=== PATIENT | female | born 1965 | race Caucasian/White ===

== ENCOUNTER 2017-02-19 19:29 | Emergency (ER) | payer MEDICAID ==
[2017-02-19 19:35] VITALS: BP 139/77; PULSE 106; RESP 18; TEMP 98.1; O2SAT 94
--- NOTE | 2017-02-19 20:15 | EDPHY ---
H & P Time Seen by Provider: 02/19/17 19:54 Smoking Status: Never smoked Constitutional: Initial Vital Signs Temperature (C) 36.7 C 02/19/17 19:33 Heart Rate 106 H 02/19/17 19:33 Respiratory Rate 18 02/19/17 19:33 Blood Pressure 139/77 H 02/19/17 19:33 O2 Sat (%) 94 02/19/17 19:33 O2 Delivery Mode Room Air Allergies/Adverse Reactions: No Known Allergies Allergy (Verified 02/19/17 19:35) Home Medications: Medication Instructions Recorded NK [No Known Home Meds] 02/19/17 Departure - Departure Referrals: NONE *PRIMARY CARE P,. [Primary Care Provider] - As per Instructions
--- NOTE | 2017-02-19 20:16 | EDPHY ---
ED Progress Note Narrative: I went to evaluate the patient but she was not the room. Nursing staff states she left without being seen.
== END 2017-02-19 20:00 | disposition left against medical advice (07) ==
DX: Z53.21 Procedure and treatment not carried out due to patient leaving prior to being seen by health care provider (principal)

== ENCOUNTER 2017-02-20 20:28 | Inpatient (IN) | payer MEDICAID ==
[2017-02-20] MEDS ORDERED: NS 1,000 ML IV ONE ×2 (20:37→20:43)
[2017-02-20] MEDS ORDERED: VANCOMYCIN HCL/NORMAL SALINE 250 ML IV ONE (20:37)
--- NOTE | 2017-02-20 20:41 | EDPHY ---
H & P HPI/ROS: HPI CHIEF COMPLAINT: Left breast infection HISTORY OF PRESENT ILLNESS: The patient very pleasant 51-year-old female significant past medical history for left breast cellulitis, breast CA, schizoaffective disorder versus bipolar, possible homelessness, she presents emergency room after she walked up to EMS in [facility] states that she called 911 as she is having ongoing breast pain left an infection. Tells me for the past 2-3 days she noticed increasing pain swelling and redness to her left breast. Denies chest pain or shortness of breath. Does admit to a cough. For subjective fever. Past Medical History: Breast CA, cellulitis, schizoaffective disorder versus bipolar Past Surgical History: Breast surgery Social History: States she has a place to live however appears homeless Family History: Noncontributory ROS REVIEW OF SYSTEMS: A comprehensive 10 point review of systems is otherwise negative aside from elements mentioned in the history of present illness. Exam Constitutional appears unkept, disheveled, triage nursing summary reviewed, vital signs reviewed, awake/alert. Eyes normal conjunctivae and sclera, EOMI, PERRLA. HENT normal inspection, atraumatic, moist mucus membranes, no epistaxis, neck supple/ no meningismus, no raccoon eyes. Respiratory clear to auscultation bilaterally, normal breath sounds, no respiratory distress, no wheezing. Cardiovascular chest wall exam: Karis RN marine engineer cpvec, left breast is erythematous warm, indurated, no fluctuance, no abscess visualize, breast appears to be cellulitic, underneath the breast fold is significant amount of yeast,, right breast yeast underfold. no apparent cellulitis, rate normal, regular rhythm, no murmur, no edema, distal pulses normal. Gastrointestinal soft, non-tender, no rebound, no guarding, normal bowel sounds, no distension, no pulsatile mass. Genitourinary no CVA tenderness. Musculoskeletal no midline vertebral tenderness, full range of motion, no calf swelling, no tenderness of extremities, no meningismus, good pulses, neurovascularly intact. Skin pink, warm, & dry, no rash, skin atraumatic. Neurologic awake, alert and oriented x 3, AAOx3, moves all 4 extremities equally, motor intact, sensory intact, CN II-XII intact, normal cerebellar, normal vision, normal speech. Psychiatric normal mood/affect. Heme/Lymph/Immune no lymphadenopathy. Differential Diagnosis: Includes but is not limited to in a particular order, mastitis, chest wall cellulitis, breath cellulitis, breast abscess, fungal infection, sepsis Medical Decision Making: Plan for this patient IV establishment, check blood work including CBC white count, blood cultures, lactic acid, full monitor, chest x-ray two view, I have ordered this patient IV Diflucan, IV vancomycin for left breast cellulitis and yeast infection Re-evaluation: 2120: Patient noted be afebrile here. Obvious left breast cellulitis. Underneath breast fold has a fungal infection. IV vancomycin given to the patient, IV Diflucan. Blood cultures pulled lactic less than 2. Normotensive. Admitted to Dr. Tello [facility] surge bed for left breast cellulitis and fungal infection. He accepts. Source: Patient, EMS - Personal History Tetanus Vaccine Date: 2006 - Medical/Surgical History Hx Asthma: No Hx Chronic Respiratory Disease: No Hx Diabetes: No Hx Cardiac Disease: No Hx Renal Disease: No Hx Cirrhosis: No Hx Alcoholism: No Hx HIV/AIDS: No Hx Splenectomy or Spleen Trauma: No Other PMH: Breast CA. Mastectomy L; w/reconstr. b/l hip replacements. bipolar. schizophrenia - Social History Smoking Status: Never smoked Constitutional: Initial Vital Signs Temperature (C) 38.5 C H 02/20/17 20:37 Heart Rate 107 H 02/20/17 20:37 Respiratory Rate 20 02/20/17 20:37 Blood Pressure 148/106 H 02/20/17 20:37 O2 Sat (%) 96 02/20/17 20:37 O2 Delivery Mode Room Air Allergies/Adverse Reactions: No Known Allergies Allergy (Verified 02/20/17 20:39) Home Medications: Medication Instructions Recorded NK [No Known Home Meds] 02/19/17 Medical Decision Making - Data Points Laboratory Results: Laboratory Results 02/20/17 20:40 02/20/17 20:40 02/20/17 02/20/17 02/20/17 20:40 20:40 20:40 WBC 12.88 10^3/uL H 10^3/uL (3.80-9.50) RBC 3.94 10^6/uL L 10^6/uL (4.18-5.33) Hgb 11.4 g/dL L g/dL (12.6-16.3) Hct 34.4 % L % (38.0-47.0) MCV 87.3 fL fL (81.5-99.8) MCH 28.9 pg pg (27.9-34.1) MCHC 33.1 g/dL g/dL (32.4-36.7) RDW 14.6 % % (11.5-15.2) Plt Count 344 10^3/uL 10^3/uL (150-400) MPV 9.9 fL fL (8.7-11.7) Neut % (Auto) 80.7 % H % (39.3-74.2) Lymph % (Auto) 8.9 % L % (15.0-45.0) [place] % (Auto) 8.9 % % (4.5-13.0) Eos % (Auto) 0.9 % % (0.6-7.6) Baso % (Auto) 0.2 % L % (0.3-1.7) Nucleat RBC Rel Count 0.0 % % (0.0-0.2) Absolute Neuts (auto) 10.39 10^3/uL H 10^3/uL (1.70-6.50) Absolute Lymphs (auto) 1.15 10^3/uL 10^3/uL (1.00-3.00) Absolute Monos (auto) 1.15 10^3/uL H 10^3/uL (0.30-0.80) Absolute Eos (auto) 0.11 10^3/uL 10^3/uL (0.03-0.40) Absolute Basos (auto) 0.03 10^3/uL 10^3/uL (0.02-0.10) Absolute Nucleated RBC 0.00 10^3/uL 10^3/uL (0-0.01) Immature Gran % 0.4 % % (0.0-1.1) Immature Gran # 0.05 10^3/uL 10^3/uL (0.00-0.10) PT 14.4 SEC SEC (12.0-15.0) INR 1.13 (0.83-1.16) APTT 29.7 SEC SEC (23.0-38.0) VBG Lactic Acid Sodium 134 mEq/L mEq/L (134-144) Potassium 3.8 mEq/L mEq/L (3.5-5.2) Chloride 102 mEq/L mEq/L (97-110) Carbon Dioxide 23 mEq/l mEq/l (22-31) Anion Gap 9 mEq/L mEq/L (8-16) BUN 14 mg/dL mg/dL (7-23) Creatinine 0.7 mg/dL mg/dL (0.6-1.0) Estimated GFR > 60 Glucose 98 mg/dL mg/dL (70-100) Calcium 8.9 mg/dL mg/dL (8.5-10.4) Total Bilirubin 0.7 mg/dL mg/dL (0.1-1.4) Conjugated Bilirubin 0.4 mg/dL mg/dL (0.0-0.5) Unconjugated Bilirubin 0.3 mg/dL mg/dL (0.0-1.1) AST 24 IU/L IU/L (14-46) ALT 27 IU/L IU/L (9-52) Alkaline Phosphatase 71 IU/L IU/L (38-126) Total Protein 6.8 g/dL g/dL (6.3-8.2) Albumin 3.8 g/dL g/dL (3.5-5.0) Lipase 75.0 IU/L IU/L (23-300) 02/20/17 20:40 WBC RBC Hgb Hct MCV MCH MCHC RDW Plt Count MPV Neut % (Auto) Lymph % (Auto) [place] % (Auto) Eos % (Auto) Baso % (Auto) Nucleat RBC Rel Count Absolute Neuts (auto) Absolute Lymphs (auto) Absolute Monos (auto) Absolute Eos (auto) Absolute Basos (auto) Absolute Nucleated RBC Immature Gran % Immature Gran # PT INR APTT VBG Lactic Acid 1.1 mmol/L mmol/L (0.7-2.1) Sodium Potassium Chloride Carbon Dioxide Anion Gap BUN Creatinine Estimated GFR Glucose Calcium Total Bilirubin Conjugated Bilirubin Unconjugated Bilirubin AST ALT Alkaline Phosphatase Total Protein Albumin Lipase Medications Given: Discontinued Medications Acetaminophen (Tylenol) 1,000 mg PO EDNOW ONE Stop: 02/20/17 20:44 Last Admin: 02/20/17 21:00 Dose: 1,000 mg Sodium Chloride (Ns) 1,000 mls @ 0 mls/hr IV ONCE ONE PRN Reason: Wide Open Stop: 02/20/17 20:38 Last Admin: 02/20/17 20:54 Dose: 1,000 mls Sodium Chloride (Ns) 1,000 mls @ 0 mls/hr IV ONCE ONE PRN Reason: Wide Open Stop: 02/20/17 20:44 Last Admin: 02/20/17 21:01 Dose: 1,000 mls Departure - Departure Disposition: [facility] Inpatient Acute Clinical Impression: Cellulitis of left breast Condition: Fair Referrals: NONE *PRIMARY CARE P,. [Unknown] - As per Instructions
[2017-02-20] MEDS ORDERED: ACETAMINOPHEN 500 MG TAB PO ONE (20:43)
[2017-02-20 20:53] LABS: % IMMATURE GRANULYOCYTES 0.4 % (0.0-1.1); ABSOLUTE IMMATURE GRANULOCYTES 0.05 10^3/uL (0.00-0.10); ADD DIFF? NO; ADD MORPH? NO; ADD SCAN? NO; ATYPICAL LYMPHOCYTE FLAG 0 (0-99); FRAGMENT RBC FLAG 0 (0-99); HEMATOCRIT 34.4 % (38.0-47.0); HEMOGLOBIN 11.4 g/dL (12.6-16.3); LEFT SHIFT FLG 0 (0-99); LIPEMIA HEMOLYSIS FLAG 80 (0-99); MEAN CELL HEMOGLOBIN 28.9 pg (27.9-34.1); MEAN CELL HEMOGLOBIN CONCENTR. 33.1 g/dL (32.4-36.7); MEAN CELL VOLUME 87.3 fL (81.5-99.8); MEAN PLATELET VOLUME 9.9 fL (8.7-11.7); PLATELET CLUMPS FLAG 0 (0-99); PLATELET COUNT 344 10^3/uL (150-400); RED BLOOD CELL COUNT 3.94 10^6/uL (4.18-5.33); RED CELL DISTRIBUTION WIDTH 14.6 % (11.5-15.2)
[2017-02-20] MEDS ORDERED: FLUCONAZOLE/NaCl 100 ML IV SCH (21:00)
[2017-02-20 21:03] LABS: INR 1.13 (0.83-1.16); PROTIME(PATIENT) 14.4 SEC (12.0-15.0)
[2017-02-20 21:04] LABS: APTT 29.7 SEC (23.0-38.0)
[2017-02-20 21:05] LABS: ALANINE AMINOTRANSFERASE 27 IU/L (9-52); ALBUMIN 3.8 g/dL (3.5-5.0); ALKALINE PHOSPHATASE 71 IU/L (38-126); ANION GAP 9 mEq/L (8-16); ASPARTATE AMINOTRANSFERASE 24 IU/L (14-46); BILIRUBIN,TOTAL 0.7 mg/dL (0.1-1.4); BILIRUBIN-CONJUGATED 0.4 mg/dL (0.0-0.5); BILIRUBIN-UNCONJUGATED 0.3 mg/dL (0.0-1.1); CALCIUM 8.9 mg/dL (8.5-10.4); CARBON DIOXIDE 23 mEq/l (22-31); CHLORIDE 102 mEq/L (97-110); CREATININE 0.7 mg/dL (0.6-1.0); GLOMERULAR FILTRATION RATE > 60; GLUCOSE 98 mg/dL (70-100); POTASSIUM 3.8 mEq/L (3.5-5.2); SODIUM 134 mEq/L (134-144); TOTAL PROTEIN 6.8 g/dL (6.3-8.2)
[2017-02-20] MEDS ORDERED: FLUCONAZOLE/NaCl 100 ML IV ONE (22:00)
[2017-02-21] MEDS ORDERED: ONDANSETRON DISINTEGRATING 4 MG TAB PO PRN (00:42)
[2017-02-21] MEDS ORDERED: IBUPROFEN 600 MG TAB PO PRN (00:42)
[2017-02-21] MEDS ORDERED: ONDANSETRON 4 MG/2 ML VIAL IVP PRN (00:42)
[2017-02-21] MEDS: CLOTRIMAZOLE 1% 15 GM CRTUBE TP SCH ×3 (04:36→21:21)
[2017-02-21 05:27] LABS: % IMMATURE GRANULYOCYTES 0.3 % (0.0-1.1); ABSOLUTE IMMATURE GRANULOCYTES 0.03 10^3/uL (0.00-0.10); ADD DIFF? NO; ADD MORPH? NO; ADD SCAN? NO; ATYPICAL LYMPHOCYTE FLAG 0 (0-99); FRAGMENT RBC FLAG 0 (0-99); HEMOGLOBIN 10.1 g/dL (12.6-16.3); LEFT SHIFT FLG 10 (0-99); LIPEMIA HEMOLYSIS FLAG 80 (0-99); MEAN CELL HEMOGLOBIN 29.5 pg (27.9-34.1); MEAN CELL HEMOGLOBIN CONCENTR. 32.6 g/dL (32.4-36.7); MEAN CELL VOLUME 90.6 fL (81.5-99.8); MEAN PLATELET VOLUME 10.2 fL (8.7-11.7); PLATELET CLUMPS FLAG 10 (0-99); PLATELET COUNT 284 10^3/uL (150-400); RED BLOOD CELL COUNT 3.42 10^6/uL (4.18-5.33); RED CELL DISTRIBUTION WIDTH 14.7 % (11.5-15.2)
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
[2017-02-21] MEDS: ACETAMINOPHEN 325 MG TAB PO PRN ×3 (08:39→21:20)
[2017-02-21] MEDS ORDERED: GADOBUTROL 10 ML VIAL IVP ONE (08:44)
--- NOTE | 2017-02-21 10:03 | PCMIDPN ---
Assessment/Plan: Assessment: Bilateral severe dermatitis underneath the breasts. This is most consistent with fungal dermatitis. The turgor of the tissue underneath the erythema is normal and at this point I do not believe that she has significant bacterial soft tissue disease. However she is at risk for this given her history and the severity of the dermatitis. We will continue the cefazolin as ordered for approximately 7 days to cover for potential secondary bacterial infection. However I think the primary issue here is fungal dermatitis and therefore we will continue the fluconazole at 100 mg IV daily. Patient can switch to p. o. once improvement is noted. Plan: 1. Continue IV cefazolin. 2. Continue IV fluconazole 200 mg daily. 3. Follow clinical course of improvement. Plan to switch to p.o. once clinically improved. Subjective: Patient is sitting up in her chair. She complains of redness and burning underneath her breasts bilaterally. States it started on the left side that has spread to the right side. Fevers yesterday. Objective: Cefazolin # 1 Fluconazole # 2 Vital Signs Temp Pulse Resp BP Pulse Ox 36.5 C 81 14 120/85 H 93 02/21/17 07:44 02/21/17 07:44 02/21/17 07:44 02/21/17 07:44 02/21/17 07:44 Laboratory Results 02/21/17 04:35 02/20/17 02/21/17 02/22/17 05:59 05:59 05:59 Intake Total 2650 Balance 2650 - Physical Exam General Appearance: WD/WN, alert, no apparent distress, non-toxic Respiratory: lungs clear, normal breath sounds, No respiratory distress Cardiac/Chest: regular rate, rhythm, No tachycardia Skin: normal color, warm/dry, rash (Confluent erythema underlying the breasts bilaterally. No extension further than this.) Neuro/Psych: alert, normal mood/affect, oriented x 3 ICD10 Worksheet Patient Problems: Problems Problem Status Onset Cellulitis of left breast Acute Cellulitis Acute Invasive ductal carcinoma of right breast Acute
--- NOTE | 2017-02-21 10:39 | WOCRNPDOC ---
WOCRN Advanced Assessment Note - Skin Integrity Problem, Advanced Assess Bilateral Breast Unknown Dressing Type: Open to Air Exudate Amount: None Skin Integrity Problem Comment: Left breast with x3 open scabbed wounds approximately 1.5x1.5x0. The breast is firm and has erythema extending superiorly toward areola. Right breast is softer with approximately x10 small scabbed areas (smaller than 0.5x0.5) of excoriation. Underneath bilateral breasts patient has moderate to severe moisture associated dermatitis with fungal involvement. Interdry sheets supplied to RN. Please reconsult prn. Wound care will not follow.
[2017-02-21] MEDS: ENOXAPARIN 40 MG/0.4 ML SYR SC SCH (13:41)
--- NOTE | 2017-02-21 14:39 | HOSPPROG ---
Hospitalist Progress Note Assessment/Plan: # Acute Breast cellulitis - recurrent - pt with history of complicated skin infections in the past including Strep A infections returning with recurrent breast erythema and pain - CXR (personally reviewed and interpreted) no subcutaneous air or infiltrates oxygen saturations 95% on RA - WBC to 12-> 10 today - consult ID regarding treatment of candidal skin infection - cont IV cefazolin - surgery asked for MRI breast # H/o invasive ductal CA - Dr. hair wanting MRI on previous admission - ordered for today # schizoaffective disorder - concerning contributor to her health status - behavioral health has been consulted - cont supportive care # proph - lovenox # diet- regular # dispo - > 2MN as requiring IV abx I have discussed the case with CM - in agreement consultation will help inform dispo planning Subjective: breast pain Objective: Vital Signs Temp Pulse Resp BP Pulse Ox 36.6 C 69 14 139/93 H 94 02/21/17 11:34 02/21/17 11:34 02/21/17 11:34 02/21/17 11:34 02/21/17 11:34 Laboratory Results 02/21/17 04:35 02/20/17 02/21/17 02/22/17 05:59 05:59 05:59 Intake Total 2650 Balance 2650 PT 14.4 SEC (12.0-15.0) 02/20/17 20:40 INR 1.13 (0.83-1.16) 02/20/17 20:40 - Physical Exam Constitutional: no apparent distress Eyes: anicteric sclera Ears, Nose, Mouth, Throat: moist mucous membranes Cardiovascular: regular rate and rhythym Respiratory: no respiratory distress Gastrointestinal: normoactive bowel sounds Genitourinary: no bladder fullness Skin: other (marked erythema under breasts bilaterally with visible cellulitis extending superiorly to areola) Musculoskeletal: No asymmetric calves Neurologic: AAOx3 Psychiatric: poor judgement Lymph, Heme, Immunologic: no cervical LAD ICD10 Worksheet Patient Problems: Problems Problem Status Onset Cellulitis of left breast Acute Cellulitis Acute Invasive ductal carcinoma of right breast Acute
[2017-02-22] MEDS: ACETAMINOPHEN 325 MG TAB PO PRN ×2 (04:32→21:41)
[2017-02-22 05:05] LABS: HEMOGLOBIN 10.3 g/dL (12.6-16.3); MEAN CELL HEMOGLOBIN 29.3 pg (27.9-34.1); MEAN CELL HEMOGLOBIN CONCENTR. 32.2 g/dL (32.4-36.7); MEAN CELL VOLUME 90.9 fL (81.5-99.8); RED BLOOD CELL COUNT 3.52 10^6/uL (4.18-5.33); RED CELL DISTRIBUTION WIDTH 14.6 % (11.5-15.2)
[2017-02-22] MEDS ORDERED: FLUCONAZOLE/NaCl 100 MG in BAG 0 ML IV SCH (09:00)
[2017-02-22] MEDS: ENOXAPARIN 40 MG/0.4 ML SYR SC SCH (09:13)
[2017-02-22] MEDS: CLOTRIMAZOLE 1% 15 GM CRTUBE TP SCH ×2 (09:27→21:12)
--- NOTE | 2017-02-22 14:55 | HOSPPROG ---
Hospitalist Progress Note Assessment/Plan: # Acute Breast cellulitis - recurrent - pt with history of complicated skin infections in the past including Strep A infections returning with recurrent breast erythema and pain - CXR (personally reviewed and interpreted) no subcutaneous air or infiltrates oxygen saturations 95% on RA - WBC to 12-> 6 today - erythema improved today on treatment pain controlled on tylenol - cont fluconazole - cont IV cefazolin # H/o invasive ductal CA - Dr. hair wanting MRI on previous admission - - MRI ordered for today # schizoaffective disorder - concerning contributor to her health status - behavioral health has been consulted - cont supportive care # HTN - pt with consistent elevation in her BP - will start low dose HCTZ today # proph - lovenox # diet- regular # dispo - > 2MN as requiring IV abx I have discussed the case with RN - pt practiced laying on her stomach she will attempt MRI today Subjective: pain improved Objective: Vital Signs Temp Pulse Resp BP Pulse Ox 36.7 C 76 16 158/97 H 96 02/22/17 11:49 02/22/17 11:49 02/22/17 11:49 02/22/17 11:49 02/22/17 11:49 Laboratory Results 02/22/17 04:24 02/21/17 02/22/17 02/23/17 05:59 05:59 05:59 Intake Total 2650 900 Balance 2650 900 PT 14.4 SEC (12.0-15.0) 02/20/17 20:40 INR 1.13 (0.83-1.16) 02/20/17 20:40 - Physical Exam Constitutional: appears nourished Eyes: anicteric sclera Ears, Nose, Mouth, Throat: moist mucous membranes Cardiovascular: regular rate and rhythym Respiratory: no respiratory distress, no rales or rhonchi Gastrointestinal: normoactive bowel sounds, soft, non-tender abdomen Genitourinary: no bladder fullness Skin: warm, normal color, erythema (improved under bilateral breasts) Musculoskeletal: No asymmetric calves Neurologic: AAOx3, sensation intact bilaterally Psychiatric: interacting appropriately Lymph, Heme, Immunologic: no cervical LAD ICD10 Worksheet Patient Problems: Problems Problem Status Onset Cellulitis of left breast Acute Cellulitis Acute Invasive ductal carcinoma of right breast Acute
--- NOTE | 2017-02-22 15:54 | PCMIDPN ---
Assessment/Plan: # L Breast cellulitis, past cultures with GAS, faint erythema 9 and 12 o'clock, this is my first exam, difficult to assess improvement. Prior episodes very slow to improve --on cefazolin IV # Tinea corporis under L breast > R breast --transition to PO fluconazole 200mg daily, higher dose because of degree of disease meds cefazolin 1gm IV q8h, #2 fluconazole, #2 micro 02/20 blood cx (2) NGTD Subjective: c/o smell from under breast rash under breast is pruritic Objective: Vital Signs Temp Pulse Resp BP Pulse Ox 36.7 C 76 16 158/97 H 96 02/22/17 11:49 02/22/17 11:49 02/22/17 11:49 02/22/17 11:49 02/22/17 11:49 Laboratory Results 02/22/17 04:24 02/21/17 02/22/17 02/23/17 05:59 05:59 05:59 Intake Total 2650 900 Balance 2650 900 - Physical Exam General Appearance: alert, no apparent distress Respiratory: No accessory muscle use Pelvic Exam: No riley Skin: erythema (faint, R breast from 9 to 12 oclock), other (multiple scattered scabbed papules R lateral breast, L lateral breast) Neuro/Psych: alert, other (flat affect, cooperative) ICD10 Worksheet Patient Problems: Problems Problem Status Onset Cellulitis of left breast Acute Cellulitis Acute Invasive ductal carcinoma of right breast Acute
[2017-02-22] MEDS: HYDROCHLOROTHIAZIDE 25 MG TAB PO SCH (16:48)
[2017-02-23] MEDS: ACETAMINOPHEN 325 MG TAB PO PRN ×2 (01:25→19:26)
[2017-02-23 05:23] LABS: ANION GAP 8 mEq/L (8-16); CALCIUM 9.1 mg/dL (8.5-10.4); CARBON DIOXIDE 25 mEq/l (22-31); CHLORIDE 105 mEq/L (97-110); CREATININE 0.6 mg/dL (0.6-1.0); GLOMERULAR FILTRATION RATE > 60; GLUCOSE 99 mg/dL (70-100); POTASSIUM 4.5 mEq/L (3.5-5.2); SODIUM 138 mEq/L (134-144)
[2017-02-23] MEDS: HYDROCHLOROTHIAZIDE 25 MG TAB PO SCH (10:28)
[2017-02-23] MEDS: FLUCONAZOLE 100 MG TAB PO SCH (10:28)
[2017-02-23] MEDS: ENOXAPARIN 40 MG/0.4 ML SYR SC SCH (10:29)
[2017-02-23] MEDS: CLOTRIMAZOLE 1% 15 GM CRTUBE TP SCH ×2 (10:29→19:27)
--- NOTE | 2017-02-23 11:17 | PCMIDPN ---
Assessment/Plan: 1. Left breast cellulitis, mild: I demarcated the area of pinkish, blanching erythema that was previously noted. Patient feels that it is better overall compared with 2 days ago. Continue Ancef as is. 2. Intertriginous candidiasis: On higher dose fluconazole 200 mg p.o. daily as well as wound care. No new recommendations. Follow liver function tests on fluconazole. Subjective: In good spirits. Flat affect. Feels that her cellulitis on the left breast is getting better. Objective: Ancef 1 g IV q.8 hours day 3. Fluconazole 200 mg p.o. daily day 3 Afebrile Vital Signs Temp Pulse Resp BP Pulse Ox 36.4 C 61 15 128/77 H 95 02/23/17 08:00 02/23/17 08:00 02/23/17 08:00 02/23/17 08:00 02/23/17 08:00 Laboratory Results 02/22/17 04:24 02/23/17 04:34 02/22/17 02/23/17 02/24/17 05:59 05:59 05:59 Intake Total 900 550 Balance 900 550 No new microbiology - Physical Exam General Appearance: alert, no apparent distress Cardiac/Chest: other (Significant beet red erythema with maceration under both breasts. Borders demarcated consistent with Sarah intertrigo. The medial aspect of the left breast is notable for faint blanching erythema that the patient's says is better. She also has multiple excoriations scattered on both breasts and superficial ulcerations that are self-inflicted secondary to pruritus.) ICD10 Worksheet Patient Problems: Problems Problem Status Onset Cellulitis of left breast Acute Cellulitis Acute Invasive ductal carcinoma of right breast Acute
--- NOTE | 2017-02-23 12:17 | HOSPPROG ---
Hospitalist Progress Note Assessment/Plan: # Acute Breast cellulitis - recurrent - pt with history of complicated skin infections in the past including Strep A infections returning with recurrent breast erythema and pain - CXR - no subcutaneous air or infiltrates oxygen saturations 96% on RA - WBC to 12-> 6- erythema improved today on treatment pain controlled on tylenol - cont fluconazole - cont IV cefazolin # H/o invasive ductal CA - Dr. Day wanting MRI on previous admission - - MRI ordered for today # schizoaffective disorder - concerning contributor to her health status - behavioral health has been consulted - cont supportive care # HTN - pt with consistent elevation in her BP - started low dose HCTZ - BP perfectly controlled today - cont 12.5 HCTZ # proph - lovenox # diet- regular # dispo - > 2MN as requiring IV abx I have discussed the case with ID - expecting IV abx for a few more days- will monitor daily for improvement Subjective: reports subjective improvement in breast cellulitis and discomfort Objective: Vital Signs Temp Pulse Resp BP Pulse Ox 36.4 C 61 15 128/77 H 95 02/23/17 08:00 02/23/17 08:00 02/23/17 08:00 02/23/17 08:00 02/23/17 08:00 Laboratory Results 02/22/17 04:24 02/23/17 04:34 02/22/17 02/23/17 02/24/17 05:59 05:59 05:59 Intake Total 900 550 Balance 900 550 PT 14.4 SEC (12.0-15.0) 02/20/17 20:40 INR 1.13 (0.83-1.16) 02/20/17 20:40 - Physical Exam Constitutional: appears nourished Eyes: anicteric sclera Ears, Nose, Mouth, Throat: moist mucous membranes Cardiovascular: regular rate and rhythym, no murmur, rub, or gallop Respiratory: no respiratory distress Gastrointestinal: normoactive bowel sounds, soft, non-tender abdomen Genitourinary: no bladder fullness Skin: warm, erythema (under bilateral breasts improved) Musculoskeletal: No asymmetric calves Neurologic: AAOx3 Psychiatric: flat affect Lymph, Heme, Immunologic: no cervical LAD ICD10 Worksheet Patient Problems: Problems Problem Status Onset Cellulitis of left breast Acute Cellulitis Acute Invasive ductal carcinoma of right breast Acute
[2017-02-23] MEDS ORDERED: GADOBUTROL 10 ML VIAL IVP ONE (14:03)
[2017-02-24 05:56] LABS: ALANINE AMINOTRANSFERASE 92 IU/L (9-52); ALBUMIN 3.3 g/dL (3.5-5.0); ALKALINE PHOSPHATASE 97 IU/L (38-126); ANION GAP 11 mEq/L (8-16); ASPARTATE AMINOTRANSFERASE 50 IU/L (14-46); BILIRUBIN,TOTAL 0.3 mg/dL (0.1-1.4); CALCIUM 9.5 mg/dL (8.5-10.4); CARBON DIOXIDE 25 mEq/l (22-31); CHLORIDE 103 mEq/L (97-110); CREATININE 0.7 mg/dL (0.6-1.0); GLOMERULAR FILTRATION RATE > 60; GLUCOSE 97 mg/dL (70-100); POTASSIUM 4.2 mEq/L (3.5-5.2); SODIUM 139 mEq/L (134-144)
[2017-02-24] MEDS: ACETAMINOPHEN 325 MG TAB PO PRN ×2 (06:06→22:34)
[2017-02-24] MEDS: CLOTRIMAZOLE 1% 15 GM CRTUBE TP SCH ×2 (09:29→22:34)
[2017-02-24] MEDS: HYDROCHLOROTHIAZIDE 25 MG TAB PO SCH (09:29)
[2017-02-24] MEDS: FLUCONAZOLE 100 MG TAB PO SCH (09:30)
[2017-02-24] MEDS: ENOXAPARIN 40 MG/0.4 ML SYR SC SCH (09:31)
--- NOTE | 2017-02-24 12:27 | HOSPPROG ---
Hospitalist Progress Note Assessment/Plan: # Acute Breast cellulitis - recurrent - pt with history of complicated skin infections in the past including Strep A infections returning with recurrent breast erythema and pain - CXR - no subcutaneous air or infiltrates oxygen saturations 96% on RA - WBC to 12-> 6- erythema stable today AST/ALT 50/93 - discuss with ID mild bump in LFT and discuss abx/antifungals - cont fluconazole - cont IV cefazolin # H/o invasive ductal CA - MRI breast (personally reviewed and interpreted) abnormal skin findings concerning for inflammatory CA and concerning LAD - discussed with Dr. Day - she will consult for either skin or LAD bx # schizoaffective disorder - concerning contributor to her health status - behavioral health has been consulted - cont supportive care # HTN - pt with consistent elevation in her BP - started low dose HCTZ - BP perfectly controlled today - cont 12.5 HCTZ # proph - lovenox # diet- regular # dispo - > 2MN as requiring IV abx I have discussed the case with Dr. Day she will consult for bx - ID will review labs and make recs regarding abx/antifungals Subjective: pain adequately controlled Objective: Vital Signs Temp Pulse Resp BP Pulse Ox 36.6 C 72 14 128/90 H 95 02/24/17 07:30 02/24/17 07:30 02/24/17 07:30 02/24/17 09:29 02/24/17 07:30 Laboratory Results 02/22/17 04:24 02/24/17 04:28 02/23/17 02/24/17 02/25/17 05:59 05:59 05:59 Intake Total 550 Balance 550 PT 14.4 SEC (12.0-15.0) 02/20/17 20:40 INR 1.13 (0.83-1.16) 02/20/17 20:40 - Physical Exam Constitutional: appears nourished Eyes: anicteric sclera Ears, Nose, Mouth, Throat: moist mucous membranes Cardiovascular: regular rate and rhythym, no murmur, rub, or gallop Respiratory: no respiratory distress Gastrointestinal: normoactive bowel sounds, soft, non-tender abdomen Genitourinary: no bladder fullness Skin: warm, normal color Musculoskeletal: No asymmetric calves Neurologic: AAOx3 Psychiatric: flat affect Lymph, Heme, Immunologic: no cervical LAD ICD10 Worksheet Patient Problems: Problems Problem Status Onset Cellulitis of left breast Acute Cellulitis Acute Invasive ductal carcinoma of right breast Acute
--- NOTE | 2017-02-24 14:56 | PCMIDPN ---
Assessment/Plan: Assessment: Bilateral severe dermatitis underneath the breasts. This is most consistent with fungal dermatitis. The turgor of the tissue underneath the erythema is normal and at this point I do not believe that she has significant bacterial soft tissue disease. However she is at risk for this given her history and the severity of the dermatitis. We will continue the cefazolin as ordered for approximately 7 days to cover for potential secondary bacterial infection. The primary issue here is fungal dermatitis and therefore we will continue the fluconazole at 200mg PO daily. She has made significant improvement in his close to being able to switch to oral medication. Plan: 1. Continue IV cefazolin. 2. Continue po fluconazole 200 mg daily. 3. Follow clinical course of improvement. Plan to switch the cefazolin to p.o. once clinically improved. Subjective: Patient notes much improvement in the tenderness and discomfort underneath her breasts. She notes that the redness is significantly decreased as well. No fevers or chills. Objective: Cefazolin #4 Fluconazole #4 Vital Signs Temp Pulse Resp BP Pulse Ox 36.4 C 72 16 129/97 H 95 02/24/17 14:48 02/24/17 14:48 02/24/17 14:48 02/24/17 14:48 02/24/17 14:48 Laboratory Results 02/22/17 04:24 02/24/17 04:28 02/23/17 02/24/17 02/25/17 05:59 05:59 05:59 Intake Total 550 Balance 550 - Physical Exam General Appearance: WD/WN, alert, no apparent distress, non-toxic Respiratory: lungs clear, normal breath sounds, No respiratory distress Cardiac/Chest: regular rate, rhythm, No tachycardia Skin: normal color, warm/dry, rash (Can fluid erythema underneath her breasts left greater than right has turned into a dusky resolving hue.), erythema ( Improved) Neuro/Psych: alert, normal mood/affect, oriented x 3 ICD10 Worksheet Patient Problems: Problems Problem Status Onset Cellulitis of left breast Acute Cellulitis Acute Invasive ductal carcinoma of right breast Acute
[2017-02-25] MEDS: CLOTRIMAZOLE 1% 15 GM CRTUBE TP SCH ×3 (08:54→23:11)
[2017-02-25] MEDS: HYDROCHLOROTHIAZIDE 25 MG TAB PO SCH (08:55)
[2017-02-25] MEDS: FLUCONAZOLE 100 MG TAB PO SCH (08:55)
[2017-02-25] MEDS: ENOXAPARIN 40 MG/0.4 ML SYR SC SCH (08:55)
--- NOTE | 2017-02-25 13:39 | HOSPPROG ---
Hospitalist Progress Note Assessment/Plan: # Acute Breast cellulitis - recurrent - pt with history of complicated skin infections in the past including Strep A infections returning with recurrent breast erythema and pain - CXR - no subcutaneous air or infiltrates oxygen saturations 96% on RA - WBC to 12-> 6- erythema stable creatinine 0.7 - discuss with ID mild bump in LFT and discuss abx/antifungals - cont fluconazole - cont IV cefazolin # H/o invasive ductal CA - MRI breast (personally reviewed and interpreted) abnormal skin findings concerning for inflammatory CA and concerning LAD - discussed with Dr. Day - they will consult 02/26/17 for plan regarding either skin or LAD bx # schizoaffective disorder - concerning contributor to her health status - behavioral health has been consulted - cont supportive care # HTN - pt with consistent elevation in her BP - started low dose HCTZ - BP perfectly controlled SBP 120's - cont 12.5 HCTZ # proph - lovenox # diet- regular # dispo - > 2MN as requiring IV abx I have discussed the case with ID - we will continue current Abx and Fluconazole - pt responding well Subjective: reports pain and erythema improved - most painful on lateral aspect of right breast Objective: Vital Signs Temp Pulse Resp BP Pulse Ox 36.6 C 76 16 126/91 H 94 02/25/17 08:00 02/25/17 08:00 02/25/17 08:00 02/25/17 08:55 02/25/17 08:00 Laboratory Results 02/22/17 04:24 02/24/17 04:28 PT 14.4 SEC (12.0-15.0) 02/20/17 20:40 INR 1.13 (0.83-1.16) 02/20/17 20:40 - Physical Exam Constitutional: appears nourished Eyes: anicteric sclera Ears, Nose, Mouth, Throat: moist mucous membranes Cardiovascular: regular rate and rhythym Respiratory: no respiratory distress, no rales or rhonchi Gastrointestinal: normoactive bowel sounds, soft, non-tender abdomen Genitourinary: no bladder fullness Skin: warm, normal color, other (erythema under bilateral breasts markedly improved - ) Musculoskeletal: No asymmetric calves Neurologic: AAOx3 Psychiatric: flat affect Lymph, Heme, Immunologic: no cervical LAD ICD10 Worksheet Patient Problems: Problems Problem Status Onset Cellulitis of left breast Acute Cellulitis Acute Invasive ductal carcinoma of right breast Acute
--- NOTE | 2017-02-25 16:09 | PCMIDPN ---
Assessment/Plan: Assessment: Bilateral severe dermatitis underneath the breasts. This is most consistent with fungal dermatitis. The turgor of the tissue underneath the erythema is normal and at this point I do not believe that she has significant bacterial soft tissue disease. However she is at risk for this given her history and the severity of the dermatitis. We will continue the cefazolin as ordered for approximately 7 days to cover for potential secondary bacterial infection. The primary issue here is fungal dermatitis and therefore we will continue the fluconazole at 200mg PO daily. She has made significant improvement in his close to being able to switch to oral medication. Plan: 1. Continue IV cefazolin. 2. Continue po fluconazole 200 mg daily. 3. Follow clinical course of improvement. Plan to switch the cefazolin to p.o. once clinically improved. Subjective: Patient is resting in her hospital room. She notes that the redness under her breasts is significantly better. She is still concerned about the lesions on the upper lateral aspect of her left breast. These were stated to be surgically biopsy tomorrow. Objective: Cefazolin# 5 Fluconazole # fossa Vital Signs Temp Pulse Resp BP Pulse Ox 36.8 C 87 17 120/81 H 94 02/25/17 15:47 02/25/17 15:47 02/25/17 15:47 02/25/17 15:47 02/25/17 15:47 Laboratory Results 02/22/17 04:24 02/24/17 04:28 - Physical Exam General Appearance: WD/WN, alert, no apparent distress, non-toxic Respiratory: lungs clear, normal breath sounds, No respiratory distress Cardiac/Chest: regular rate, rhythm, No tachycardia Skin: normal color, warm/dry, rash (Improving erythema under the breasts bilaterally. Right side near normal. Left side 60% improved.) Neuro/Psych: alert, normal mood/affect, oriented x 3 ICD10 Worksheet Patient Problems: Problems Problem Status Onset Cellulitis of left breast Acute Cellulitis Acute Invasive ductal carcinoma of right breast Acute
[2017-02-25] MEDS: ACETAMINOPHEN 325 MG TAB PO PRN (22:45)
[2017-02-26 08:06] VITALS: BP 122/77; PULSE 71; RESP 12; TEMP 97.5; O2SAT 94
[2017-02-26] MEDS: FLUCONAZOLE 100 MG TAB PO SCH (10:44)
[2017-02-26] MEDS: CLOTRIMAZOLE 1% 15 GM CRTUBE TP SCH (10:44)
[2017-02-26] MEDS: HYDROCHLOROTHIAZIDE 25 MG TAB PO SCH (10:44)
[2017-02-26] MEDS: ENOXAPARIN 40 MG/0.4 ML SYR SC SCH (10:45)
[2017-02-26] MEDS: ACETAMINOPHEN 325 MG TAB PO PRN (10:50)
--- NOTE | 2017-02-26 13:36 | GDS ---
[f rep st] DISCHARGE SUMMARY DISCHARGE DIAGNOSES: 1. Acute breast cellulitis, recurrent, thought to be due to intertrigo. 2. History of invasive ductal carcinoma. 3. Schizoaffective disorder. 4. Hypertension. CONSULTANTS: 1. [facility]. 2. [facility]. HOSPITAL COURSE AND STAY: By problem: 1. Recurrent breast cellulitis bilaterally thought to be due to dermatitis: Patient was admitted t o the hospital where she has been treated with IV cefazolin as well as fluconazole 200 mg daily. Priyank avila's erythema has continued to improve. On day of discharge, she is afebrile and tells me that s he feels well and would like to be discharged. I discussed the case with Chana Lui from General Surgery who will see the patient in the outpatient setting for consideration for biopsy given the b reast MRI done on 02/23/2017 revealed diffuse abnormal thickening and enhancement of the dermis worr isome for inflammatory left breast carcinoma. 2. Hypertension: The patient was started on hydrochlorothiazide 12.5 mg daily which will be contin ued. She will need further outpatient monitoring of her blood pressure. PHYSICAL EXAMINATION: VITAL SIGNS: On day of discharge, blood pressure 122/77, pulse 71, respirato ry rate 12, O2 saturation 94% on room air, temperature afebrile. GENERAL: No acute distress. HEAR T: S1, S2. LUNGS: Clear. ABDOMEN: Soft. CHEST: There is improving erythema on the inferior as pect of both breasts. There is no fluctuance or induration. DIAGNOSTICS: During this hospital stay: Breast MRI done 02/23/2017: Refer to report. DISCHARGE MEDICATIONS: Please refer to discharge medication reconciliation in [facility] for full det ails. Below is a preliminary list. New medications on hospital discharge: Fluconazole 100 mg daily for 10 more days, hydrochlorothiazi de 12.5 mg p.o. daily. DISCHARGE INSTRUCTIONS: The patient will be discharged from the hospital where she should follow up with Dr. Day as directed. She should also follow up with her primary care provider for routine h ospital followup. If she does have worsening erythema, it would be reasonable to resume an oral ant ibiotic. /[id number]/MODL
== END 2017-02-26 14:01 | disposition home or self-care (01) | DRG 601 ==
LOC: EDUNIT# → F3E 22:31
PROVIDERS: ADMIT Internal Medicine; ATTEND Family Medicine
DX: N61.0 Mastitis without abscess (principal); B37.2 Candidiasis of skin and nail; B35.4 Tinea corporis; F25.0 Schizoaffective disorder, bipolar type; I10 Essential (primary) hypertension; R92.8 Other abnormal and inconclusive findings on diagnostic imaging of breast; Z85.3 Personal history of malignant neoplasm of breast
CPT/HCPCS: 0159T; 96365; 96366; A9585; C8905; J0690; J1450; J1650; J3370

== ENCOUNTER 2017-02-27 23:00 | Emergency (ER) | payer MEDICAID ==
[2017-02-27 23:08] VITALS: O2SAT 95
[2017-02-27] MEDS ORDERED: FLUCONAZOLE 100 MG TAB PO SCH (23:30)
[2017-02-27] MEDS ORDERED: HYDROCHLOROTHIAZIDE 12.5 MG CAP PO SCH (23:30)
--- NOTE | 2017-02-27 23:34 | EDPHY ---
H & P Stated Complaint: breast infection, hematemesis Source: Patient Exam Limitations: No limitations - Personal History LMP (Females 10-55): Now Current Tetanus/Diphtheria Vaccine: Yes Tetanus Vaccine Date: 2006 - Medical/Surgical History Hx Asthma: No Hx Chronic Respiratory Disease: No Hx Diabetes: No Hx Cardiac Disease: No Hx Renal Disease: No Hx Cirrhosis: No Hx Alcoholism: No Hx HIV/AIDS: No Hx Splenectomy or Spleen Trauma: No Other PMH: PMHx: Breast CA, bipolar, schizophrenia. PSHx: Mastectomy L; w/ reconstr. b/l hip replacements - Social History Smoking Status: Never smoked Time Seen by Provider: 02/27/17 23:18 HPI/ROS: CHIEF COMPLAINT: hematemesis, breast drainage HISTORY OF PRESENT ILLNESS: 51-year-old female presents emergency reporting 1 episode of hematemesis this morning. Patient reports noticing diane discharge under her left breast earlier today. Patient was discharged from the hospital yesterday after a week's day being treated for a breast cellulitis and fungal infection. Patient was treated in the hospital with IV cefazolin and fluconazole. Patient denies chest pain or shortness of breath, no lightheadedness or dizziness. She denies nausea. She denies abdominal pain. Patient reports her hematemesis was bright red blood. Patient denies diarrhea, no blood or dark tarry stools. Patient states she did not fill her prescriptions for her Diflucan or hydrochlorothiazide that she was discharged with yesterday. REVIEW OF SYSTEMS: A comprehensive 10 point review of systems is otherwise negative aside from elements mentioned in the history of present illness. (Cindy Delgado) - Physical Exam Exam: Physical Exam Gen: Alert and Oriented, NAD HEENT: PERRL, moist mucous membranes NECK: no meningismus CV: regular rate and regular rhythm PULM: CTAB, no wheezes ABDOMEN: soft, non tender to palpation, BS present BACK: No CVA tenderness NEURO: Neurologically grossly intact EXTREMITIES: normal appearing SKIN: Bilateral breasts with erythema under breasts, no discharge, 3 scabs to left lateral breast, multiple scabs to right breast, no discharge or drainage PSYCH: Flat affect (Cindy Delgado) Constitutional: Initial Vital Signs Temperature (C) 36.5 C 02/27/17 23:04 Heart Rate 71 02/27/17 23:04 Respiratory Rate 14 02/27/17 23:04 Blood Pressure 150/83 H 02/27/17 23:04 O2 Sat (%) 95 02/27/17 23:04 O2 Delivery Mode Room Air Allergies/Adverse Reactions: No Known Allergies Allergy (Verified 02/20/17 20:39) Home Medications: Medication Instructions Recorded Fluconazole [Diflucan (*)] 100 mg PO DAILY #10 tab 02/26/17 Hydrochlorothiazide [HCTZ (*)] 12.5 mg PO DAILY #30 tab 02/26/17 Medical Decision Making ED Course/Re-evaluation: IV established, CBC obtained, patient is given her dose of hydrochlorothiazide and Diflucan 2 day since she did not picker packer her prescription. Patient has normal vital signs, she has a normal blood pressure is not tachycardic. Abdomen is soft and nontender. She does not appear to have cellulitis to her breasts. It appears as her fungal infection under her breasts is improving after reading through her chart from her hospitalization last week. [id number]- Report passed on to do Dr. Nichole at the end of my shift pending CBC results. Pt will be discharged if normal. (Cindy Delgado) Patient has a slight elevation white count of 11 with no left shift. She is not toxic appearing at this time. Will discharge per M[employer]ER OFFBEARER Keanu plan. Patient has been instructed that it is absolutely vital that she get her prescriptions filled. (Tavon Nichole) - Data Points Laboratory Results: Laboratory Results 02/28/17 00:38 02/28/17 02/28/17 02/27/17 00:38 00:05 23:40 WBC 11.10 10^3/uL H 10^3/uL TNP TNP (3.80-9.50) RBC 3.74 10^6/uL L 10^6/uL TNP TNP (4.18-5.33) Hgb 11.1 g/dL L g/dL TNP TNP (12.6-16.3) Hct 33.6 % L % TNP TNP (38.0-47.0) MCV 89.8 fL fL TNP TNP (81.5-99.8) MCH 29.7 pg pg TNP TNP (27.9-34.1) MCHC 33.0 g/dL g/dL TNP TNP (32.4-36.7) RDW 14.8 % % TNP TNP (11.5-15.2) Plt Count 399 10^3/uL 10^3/uL TNP TNP (150-400) MPV 9.5 fL fL TNP TNP (8.7-11.7) Neut % (Auto) 67.1 % % TNP TNP (39.3-74.2) Lymph % (Auto) 21.0 % % TNP TNP (15.0-45.0) Grundy % (Auto) 7.4 % % TNP TNP (4.5-13.0) Eos % (Auto) 3.7 % % TNP TNP (0.6-7.6) Baso % (Auto) 0.4 % % TNP TNP (0.3-1.7) Nucleat RBC Rel Count 0.0 % % TNP TNP (0.0-0.2) Absolute Neuts (auto) 7.46 10^3/uL H 10^3/uL TNP TNP (1.70-6.50) Absolute Lymphs (auto) 2.33 10^3/uL 10^3/uL TNP TNP (1.00-3.00) Absolute Monos (auto) 0.82 10^3/uL H 10^3/uL TNP TNP (0.30-0.80) Absolute Eos (auto) 0.41 10^3/uL H 10^3/uL TNP TNP (0.03-0.40) Absolute Basos (auto) 0.04 10^3/uL 10^3/uL TNP TNP (0.02-0.10) Absolute Nucleated RBC 0.00 10^3/uL 10^3/uL TNP TNP (0-0.01) Immature Gran % 0.4 % % TNP TNP (0.0-1.1) Immature Gran # 0.04 10^3/uL 10^3/uL TNP TNP (0.00-0.10) Departure - Departure Clinical Impression: Cellulitis of left breast Condition: Good Instructions: Cellulitis (ED) Additional Instructions: Follow-up with Dr. Day as scheduled and your primary care doctor. Return to the emergency department for any worsening symptoms. Any abdominal pain, fevers , worsening breast redness or pain, or any further vomiting. Fill your prescriptions tomorrow and take them as as prescribed. Referrals: Rachael Day MD [Medical Doctor] - As per Instructions
[2017-02-28 00:47] LABS: % IMMATURE GRANULYOCYTES 0.4 % (0.0-1.1); ABSOLUTE IMMATURE GRANULOCYTES 0.04 10^3/uL (0.00-0.10); ADD DIFF? NO; ADD MORPH? NO; ADD SCAN? NO; ATYPICAL LYMPHOCYTE FLAG 20 (0-99); FRAGMENT RBC FLAG 0 (0-99); HEMATOCRIT 33.6 % (38.0-47.0); HEMOGLOBIN 11.1 g/dL (12.6-16.3); LEFT SHIFT FLG 0 (0-99); LIPEMIA HEMOLYSIS FLAG 80 (0-99); MEAN CELL HEMOGLOBIN 29.7 pg (27.9-34.1); MEAN CELL VOLUME 89.8 fL (81.5-99.8); MEAN PLATELET VOLUME 9.5 fL (8.7-11.7); PLATELET CLUMPS FLAG 0 (0-99); PLATELET COUNT 399 10^3/uL (150-400); RED BLOOD CELL COUNT 3.74 10^6/uL (4.18-5.33); RED CELL DISTRIBUTION WIDTH 14.8 % (11.5-15.2)
[2017-02-28 01:20] VITALS: BP 140/84; PULSE 81; RESP 18; TEMP 98.2
== END 2017-02-28 01:20 | disposition home or self-care (01) ==
DX: N61.1 Abscess of the breast and nipple (principal); Z85.3 Personal history of malignant neoplasm of breast

== ENCOUNTER 2017-03-02 01:42 | Emergency (ER) | payer MEDICAID ==
[2017-03-02 01:49] VITALS: BP 121/89; PULSE 88; RESP 16; TEMP 97.5; O2SAT 95
--- NOTE | 2017-03-02 02:07 | EDPHY ---
H & P Stated Complaint: "pink cottage cheese" discharge from B breast infection Time Seen by Provider: 03/02/17 01:54 HPI/ROS: HPI The patient presents with concern for drainage from her breasts bilaterally. She says she saw some sort of cottage cheese type substance draining from both of her breasts earlier today. She has had no pain or fever with this. She says that she has been taking her antifungal blood pressure medication. She was in the ER just a few days ago and was admitted to the hospital as well for a breast cellulitis. REVIEW OF SYSTEMS Constitutional: No fever, no chills. Eyes: No discharge. ENT: No sore throat. Cardiovascular: No chest pain, no palpitations. Respiratory: No cough, no shortness of breath. Gastrointestinal: No abdominal pain, no vomiting. Genitourinary: No hematuria. Musculoskeletal: No back pain. Skin: No rashes. Neurological: No headache. PMHx: Schizophrenia, recurrent breast cellulitis and abscesses PHYSICAL General Appearance: Alert, no distress Eyes: Pupils equal and round no pallor or injection ENT, Mouth: Mucous membranes moist Respiratory: There are no retractions, lungs are clear to auscultation Cardiovascular: Regular rate and rhythm Gastrointestinal: Abdomen is soft and non-tender, no masses, bowel sounds normal Neurological: A&O, moves all extremities Skin: Inter mammary fold bilaterally with slight redness no warmth, no tenderness to palpation, no drainage Musculoskeletal: Neck is supple non tender Extremities: symmetrical, full range of motion Psychiatric: Patient is oriented X 3, there is no agitation Source: Patient Exam Limitations: No limitations - Personal History LMP (Females 10-55): Unknown Current Tetanus/Diphtheria Vaccine: Yes Current Tetanus Diphtheria and Acellular Pertussis (TDAP): Yes Tetanus Vaccine Date: 2006 - Medical/Surgical History Hx Asthma: No Hx Chronic Respiratory Disease: No Hx Diabetes: No Hx Cardiac Disease: No Hx Renal Disease: No Hx Cirrhosis: No Hx Alcoholism: No Hx HIV/AIDS: No Hx Splenectomy or Spleen Trauma: No Other PMH: PMHx: Breast CA, bipolar, schizophrenia. PSHx: Mastectomy L; w/ reconstr. b/l hip replacements - Social History Smoking Status: Never smoked Constitutional: Initial Vital Signs Temperature (C) 36.4 C 03/02/17 01:44 Heart Rate 88 03/02/17 01:44 Respiratory Rate 16 03/02/17 01:44 Blood Pressure 121/89 H 03/02/17 01:44 O2 Sat (%) 95 03/02/17 01:44 O2 Delivery Mode Room Air Allergies/Adverse Reactions: No Known Allergies Allergy (Verified 02/20/17 20:39) Home Medications: Medication Instructions Recorded Fluconazole [Diflucan (*)] 100 mg PO DAILY #10 tab 02/26/17 Hydrochlorothiazide [HCTZ (*)] 12.5 mg PO DAILY #30 tab 02/26/17 HYDROCORTISONE 03/02/17 Medical Decision Making Differential Diagnosis: This is a 51-year-old female with schizophrenia, also recurrent breast abscesses and cellulitis who presents from home with concern from drainage from her breast. On exam, I do not appreciate any drainage or any areas of fluctuance or cellulitis. As she does appear to have fungal infection in the inter mammary fold. His she is currently on an antifungal for this. I have advised her to continue taking this. She is to return if she develops any worsening redness, swelling, fevers or chills. Departure - Departure Disposition: Home, Routine, Self-Care Clinical Impression: Cellulitis Qualifiers: Site of cellulitis of trunk: chest wall Condition: Good Instructions: Cellulitis (ED) Additional Instructions: Please continue to take your antibiotics. If you develop a fever, worsening pain, please return to the emergency room. Otherwise you can follow up with Dr. Day as planned. Referrals: Rachael Day MD [Primary Care Provider] - As per Instructions
== END 2017-03-02 02:11 | disposition home or self-care (01) ==
DX: L03.313 Cellulitis of chest wall (principal); Z85.3 Personal history of malignant neoplasm of breast

== ENCOUNTER 2017-03-04 18:18 | Emergency (ER) | payer MEDICAID ==
[2017-03-04 19:05] VITALS: TEMP 97.9
--- NOTE | 2017-03-04 21:04 | EDPHY ---
H & P Stated Complaint: lab check up. L breast infection HPI/ROS: CHIEF COMPLAINT: Requesting blood work HISTORY OF PRESENT ILLNESS: This is a 51-year-old female with schizophrenia. She was recently hospitalized with a left breast cellulitis and what sounds like a candidal infection. She is taking medication and believes that she is still taking antibiotics. She tells me that today a nurse from the hospital approached her on the street and asked her to come to the hospital to have blood drawn. When I questioned the veracity of this she insisted that this had occurred. She denies auditory of visual hallucinations, suicidality, homicidality. REVIEW OF SYSTEMS: A ten point review of systems was performed and is negative with the exception of the items mentioned in the HPI. - Personal History LMP (Females 10-55): Unknown Current Tetanus/Diphtheria Vaccine: Yes Current Tetanus Diphtheria and Acellular Pertussis (TDAP): Yes Tetanus Vaccine Date: 2006 - Medical/Surgical History Hx Asthma: No Hx Chronic Respiratory Disease: No Hx Diabetes: No Hx Cardiac Disease: No Hx Renal Disease: No Hx Cirrhosis: No Hx Alcoholism: No Hx HIV/AIDS: No Hx Splenectomy or Spleen Trauma: No Other PMH: PMHx: Breast CA, bipolar, schizophrenia. PSHx: Mastectomy L; w/ reconstr. b/l hip replacements - Social History Smoking Status: Never smoked Additional Social History: Homeless. - Physical Exam Exam: General Appearance: Alert. Vital signs reviewed. Blood pressure 150/74. Afebrile. Poor personal hygiene. Neck: No lymphadenopathy. Respiratory: Lungs are clear to auscultation; no wheezes, rales, or rhonchi. Cardiovascular: Regular rate and rhythm; no murmur, rub, or gallop. Gastrointestinal: Abdomen is soft and nontender. Skin: Skin is warm and dry. She is sun tanned and sun burned. There is an area of mild erythema in the medial aspect of her left breast, no warmth and no fluctuance in that region. There is well demarcated erythema under the left breast, consistent with a fungal infection. Both breasts have scattered scabbed regions. I do not feel any masses and she does not seem to have tenderness when I examine her. Neurological: Alert and oriented. Moving all four extremities easily and equally. Psychiatric: Flat affect. Constitutional: Initial Vital Signs Temperature (C) 36.6 C 03/04/17 19:03 Heart Rate 76 03/04/17 19:03 Respiratory Rate 16 03/04/17 19:03 Blood Pressure 158/74 H 03/04/17 19:03 O2 Sat (%) 95 03/04/17 19:03 O2 Delivery Mode Room Air Allergies/Adverse Reactions: No Known Allergies Allergy (Verified 03/04/17 19:03) Home Medications: Medication Instructions Recorded Fluconazole [Diflucan (*)] 100 mg PO DAILY #10 tab 02/26/17 Hydrochlorothiazide [HCTZ (*)] 12.5 mg PO DAILY #30 tab 02/26/17 HYDROCORTISONE 03/02/17 Medical Decision Making ED Course/Re-evaluation: Patient with schizophrenia recent breast cellulitis/abscess who presents for blood draw. She tells me that she was approached by a nurse who advised her to come to the hospital for blood work. I doubt that this actually occurred. I do not know of a reason to draw blood and perform bloodwork. I do not think that she is having auditory hallucinations, she denies hallucinations. She is not suicidal or homicidal. I do not feel that she is a danger to herself or others. She is being discharged in stable condition. Departure - Departure Disposition: Home, Routine, Self-Care Clinical Impression: Cellulitis of left breast Condition: Good Instructions: Cellulitis (ED) Additional Instructions: I think that your breast cellulitis is doing well. Continue with all prescribed medications. Follow up with Dr. Crawford again. I do not think that you need to have blood drawn tonight. Referrals: Rachael Day MD [Primary Care Provider] - As per Instructions
[2017-03-04 21:31] VITALS: BP 143/92; PULSE 69; RESP 16; O2SAT 93
== END 2017-03-04 21:34 | disposition home or self-care (01) ==
DX: N61.0 Mastitis without abscess (principal); Z85.3 Personal history of malignant neoplasm of breast

== ENCOUNTER 2017-03-07 20:51 | Emergency (ER) | payer MEDICAID ==
[~2017-03-07 20:51] MED LIST: CLOTRIMAZOLE 1% 15 GM CRTUBE TP SCH
[2017-03-07 21:06] VITALS: RESP 16; TEMP 98.6
--- NOTE | 2017-03-07 22:25 | EDPHY ---
H & P Time Seen by Provider: 03/07/17 21:55 HPI/ROS: CHIEF COMPLAINT: Breast infection HISTORY OF PRESENT ILLNESS: 51-year-old female presents to the emergency department with breast infection. The patient has had this multiple times in the past. She was recently treated with antibiotics as well as some type of topical cream. She has also used powders. She denies fevers or chills. Denies any other rash. Denies chest pain or difficulty breathing. Denies abdominal pain or vomiting. REVIEW OF SYSTEMS: Constitutional: No fever, no chills. Eyes: No double or blurry vision. ENT: No sore throat. Respiratory: No cough, no shortness of breath. Cardiac: No chest pain. Gastrointestinal: No abdominal pain, vomiting or diarrhea. Genitourinary: No dysuria. Musculoskeletal: No neck or back pain. Skin: Rash bilateral breasts. Neurological: No headache. Past Medical/Surgical History: Bipolar, schizophrenia, orthopedic surgery, breast surgery Social History: Smoking Status: Never smoked Physical Exam: General Appearance: Alert, no distress. Eyes: Pupils equal and round. Extraocular motions are all intact. ENT: Mouth: Mucous membranes moist. Respiratory: No wheezing, rhonchi, or rales, lungs are clear to auscultation. Cardiovascular: Regular rate and rhythm. Gastrointestinal: Abdomen is soft and nontender, no masses, no rebound or guarding, bowel sounds normal. Neurological: Alert and oriented x 3, cranial nerves II through XII grossly intact Skin: Patient has pendulous breasts. Underneath the left breast there is obvious redness with well demarcated lines and more of a scaly border with at more central clearing consistent with tinea infection. There is no vesicles. There is no lymphadenitis. The patient has mild redness noted under the right breast. Musculoskeletal: Nontender to palpate along the cervical, thoracic or lumbar spine. Neck is supple. Extremities: Full range of motion and no peripheral edema. Psychiatric: Patient is oriented X 3, there is no agitation. Constitutional: Initial Vital Signs Temperature (C) 37 C 03/07/17 21:02 Heart Rate 81 03/07/17 21:02 Respiratory Rate 16 03/07/17 21:02 Blood Pressure 139/81 H 03/07/17 21:02 O2 Sat (%) 94 03/07/17 21:02 O2 Delivery Mode Room Air Allergies/Adverse Reactions: No Known Allergies Allergy (Verified 03/07/17 21:02) Home Medications: Medication Instructions Recorded Clotrimazole 1% [Lotrimin 1%] 14.2 gm TP BID #0 cream 03/07/17 Medical Decision Making ED Course/Re-evaluation: Clinically I think this patient has tinea infection. She will be treated with topical 1% clotrimazole. She was given this from pharmacy as well as a prescription for additional medication. She was encouraged to continue this twice daily for 1 week. She was also encouraged to follow up with primary care provider. I do not think antibiotics are indicated. No signs of cellulitis. Differential Diagnosis: Including but not limited to tinea corporis, cellulitis, sepsis Departure - Departure Disposition: Home, Routine, Self-Care Clinical Impression: Tinea corporis Condition: Good Instructions: Tinea Corporis (ED) Additional Instructions: Apply Lotrimin 1% cream twice daily under your breasts. Try to keep the area as dry and clean as possible. Referrals: SHANITA JOHNSTON [Primary Care Provider] - As per Instructions Prescriptions: Clotrimazole 1% [Lotrimin 1%] 14.2 gm TP BID #0 cream
[2017-03-07 23:24] VITALS: BP 138/77; PULSE 82; O2SAT 95
== END 2017-03-07 23:10 | disposition home or self-care (01) ==
DX: B35.4 Tinea corporis (principal)

== ENCOUNTER 2017-03-17 19:16 | Emergency (ER) | payer MEDICAID ==
[2017-03-17 19:27] VITALS: BP 142/78; PULSE 83; RESP 18; TEMP 98.4; O2SAT 93
[2017-03-17] MEDS ORDERED: ONDANSETRON 4 MG/2 ML VIAL ONE (19:40)
--- NOTE | 2017-03-17 19:53 | EDPHY ---
H & P Time Seen by Provider: 03/17/17 19:36 HPI/ROS: CHIEF COMPLAINT: Redness on left breast HISTORY OF PRESENT ILLNESS: Patient was seen on March 02 and and the . She was treated with clotrimazole on her most recent visit for was thought to be skin fungal infection. Today she returns with some redness under her left breast and she was concerned to an infection. Of note she has history of breast cancer with mastectomy and skin graft on the left breast with some history of recurrent infection and abscess. The redness is just under her left breast. It does not radiate. It is not associated with itching or pain or fever. No drainage. REVIEW OF SYSTEMS: No fever or chills as noted above. No recent trauma. No drainage from wounds. PAST MEDICAL HISTORY: Includes psychiatric (probable schizoaffective disorder) , breast cancer, left mastectomy with reconstruction and bilateral hip replacements Social history: Nonsmoker General Appearance: Alert and conversant, cooperative. Respiratory: Normal respiratory effort, breath sounds equal, lungs are clear to auscultation. Cardiovascular: Regular rate and rhythm. Gastrointestinal: Abdomen is soft and non tender. Neurological: Alert and oriented x3. Normally conversant. Face symmetric, normal movement and sensation in all extremities. Skin: Patient is some excoriation and scabs on both the left and right breast but no surrounding redness or warmth or tenderness or fluctuance or blisters or crepitus or eschar. No drainage or discharge. She has some scattered red papules under her left breast with some satellite lesions well demarcated consistent with topical skin fungal infection. No lymphangitis. She does appear comfortable. she does not appear to be in severe pain. Psychiatric: Not agitated. Emergency Department course/MDM: Seen in emergency department 03/02 and 03/04 and 03/07. Clinically this does not appear to be an acute cellulitis or abscess. I think fasciitis is unlikely. I think this is much more likely to be a superficial fungal infection in she had good result with clotrimazole prescribed a week and half ago. Clotrimazole represcribed, will follow up with her surgeon on Sunday if not improved. Smoking Status: Never smoked Constitutional: Initial Vital Signs Temperature (C) 36.9 C 03/17/17 19:25 Heart Rate 83 03/17/17 19:25 Respiratory Rate 18 03/17/17 19:25 Blood Pressure 142/78 H 03/17/17 19:25 O2 Sat (%) 93 03/17/17 19:25 O2 Delivery Mode Room Air Allergies/Adverse Reactions: No Known Allergies Allergy (Verified 03/07/17 21:02) Home Medications: Medication Instructions Recorded Clotrimazole 1% [Lotrimin 1%] 30 gm TP Q12 #1 cream 03/17/17 MDM/Departure - Depart Disposition: Home, Routine, Self-Care Clinical Impression: Fungal infection of skin Condition: Good Instructions: Antifungals (On the skin) Prescriptions: Clotrimazole 1% [Lotrimin 1%] 30 gm TP Q12 #1 cream Referrals: Rachael Day MD [Primary Care Provider] - As per Instructions (Please see Dr. Day in the office on Sunday or Sunday for re-evaluation.)
== END 2017-03-17 21:19 | disposition home or self-care (01) ==
DX: B36.9 Superficial mycosis, unspecified (principal); Z85.3 Personal history of malignant neoplasm of breast
CPT/HCPCS: J2405

== ENCOUNTER 2017-03-20 22:14 | Emergency (ER) | payer MEDICAID ==
[2017-03-20 22:19] VITALS: RESP 20
--- NOTE | 2017-03-20 23:07 | EDPHY ---
H & P Stated Complaint: left breast infection Time Seen by Provider: 03/20/17 22:49 HPI/ROS: Chief Complaint: Left breast infection HPI: 52-year-old woman with a history of breast cysts and cellulitis is presenting for evaluation of redness below her left breast which has been worsening for the past several days. Patient was seen in the emergency department 3 days ago and diagnosed with an early yeast infection. She was given a prescription for clotrimazole but left the emergency depart without the prescription. Patient states she did have some leftover from prior and has been applying it twice a day. She has a increasing redness below her left breast since then. No fevers or chills. No nausea or vomiting. It is not tender or warm to the touch. ROS: 10 point Review of Systems is negative except as noted in the HPI. PMH: Breast cancer status post mastectomy, left breast abscesses, cellulitis, chronic mental illness Social History: Denies smoking, denies alcohol Family History: non-contributory Physical Exam: Gen: Awake, Alert, No Distress HEENT: Nose: no rhinorrhea Eyes: PERRLA, EOMI Mouth: Moist mucosa Neck: Supple, no JVD Chest: nontender, lungs clear to auscultation, left breast exam with nurse fax machine repairer there is erythema in the folds of her left breast with stellate lesions consistent with candidal infection. Is not warm to the touch. Area does not extend beyond the fold of the breast. There is no masses or fluctuance Heart: S1, S2 normal, no murmur Abd: Soft, non-tender, no guarding Back: no CVA tenderness, no midline tenderness Ext: no edema, non-tender Skin: no rash Neuro: CN II-XII intact, Sensation grossly intact, Strength 5/5 in bilateral upper and lower extremities - Personal History Tetanus Vaccine Date: 2006 - Medical/Surgical History Hx Asthma: No Hx Chronic Respiratory Disease: No Hx Diabetes: No Hx Cardiac Disease: No Hx Renal Disease: No Hx Cirrhosis: No Hx Alcoholism: No Hx HIV/AIDS: No Hx Splenectomy or Spleen Trauma: No Other PMH: PMHx: Breast CA, bipolar, schizophrenia. PSHx: Mastectomy L; w/ reconstr. b/l hip replacements - Social History Smoking Status: Never smoked Constitutional: Initial Vital Signs Temperature (C) 36.4 C 03/20/17 22:18 Heart Rate 74 03/20/17 22:18 Respiratory Rate 20 03/20/17 22:18 Blood Pressure 141/75 H 03/20/17 22:18 O2 Sat (%) 95 03/20/17 22:18 O2 Delivery Mode Room Air Allergies/Adverse Reactions: No Known Allergies Allergy (Verified 03/21/17 01:56) Home Medications: Medication Instructions Recorded Clotrimazole 1% [Lotrimin 1%] 30 gm TP Q12 #1 cream 03/17/17 Ketoconazole 2% [Nizoral 2% Cream 60 gm TP BID #1 cream 03/20/17 (*)] Medical Decision Making ED Course/Re-evaluation: 52-year-old with candidal infection her left breast. She claims she has been using clotrimazole however she did not take a prescription with her last visit at that point had stated that she had run out. I have given a prescription for ketoconazole here. She is not systemically on well-appearing. Does not appear like cellulitis now. I have instructed her lower that she needs to follow up with her physician in the next couple days for further evaluation. She will return for any concerns. Departure - Departure Disposition: Home, Routine, Self-Care Clinical Impression: Fungal infection of skin Condition: Good Instructions: Antifungals (On the skin) Additional Instructions: Follow up with primary care physician in 1-2 days for re-evaluation. Apply the ketoconazole to the affected area twice a day. Return to the emergency department for increasing redness, fevers, chills, worsening pain, or any other concerns. Referrals: Rachael Day MD [Primary Care Provider] - As per Instructions SHANITA JOHNSTON [Non Staff and Non MD] - As per Instructions Prescriptions: Ketoconazole 2% [Nizoral 2% Cream (*)] 60 gm TP BID #1 cream
[2017-03-21 00:23] VITALS: BP 137/88; PULSE 79; TEMP 98.4; O2SAT 93
== END 2017-03-21 00:22 | disposition home or self-care (01) ==
DX: B36.9 Superficial mycosis, unspecified (principal); Z85.3 Personal history of malignant neoplasm of breast

== ENCOUNTER 2017-03-21 01:52 | Emergency (ER) | payer MEDICAID ==
[2017-03-21 01:59] VITALS: BP 142/85; PULSE 69; RESP 20; TEMP 97.3; O2SAT 95
--- NOTE | 2017-03-21 02:32 | EDPHY ---
H & P Stated Complaint: vaginal and rectal bleed Time Seen by Provider: 03/21/17 02:19 HPI/ROS: Chief Complaint: Vaginal bleeding HPI: 52-year-old woman who was just seen by me in the emergency department for a fungal rash in her left chest states that when she left the emergency department she had blood come from either her vagina or her rectum. She is still having her menstrual cycle but does not recall her last menstrual period. Denies any abdominal cramping. No lightheadedness or fainting. No fevers or chills. ROS: 10 point Review of Systems is negative except as noted in the HPI. Social History: No smoking, no alcohol, no recreational drug use Family History: non-contributory Physical Exam: Gen: Awake, Alert, No Distress HEENT: Nose: no rhinorrhea Eyes: PERRLA, EOMI Mouth: Moist mucosa Neck: Supple, no JVD Chest: nontender, lungs clear to auscultation, left fungal rash in the creases of her left breast Heart: S1, S2 normal, no murmur Abd: Soft, non-tender, no guarding : Dried blood on bilateral labia majora, no active bleeding Back: no CVA tenderness, no midline tenderness Ext: no edema, non-tender Skin: no rash Neuro: CN II-XII intact, Sensation grossly intact, Strength 5/5 in bilateral upper and lower extremities - Personal History Tetanus Vaccine Date: 2006 - Medical/Surgical History Hx Asthma: No Hx Chronic Respiratory Disease: No Hx Diabetes: No Hx Cardiac Disease: No Hx Renal Disease: No Hx Cirrhosis: No Hx Alcoholism: No Hx HIV/AIDS: No Hx Splenectomy or Spleen Trauma: No Other PMH: PMHx: Breast CA, bipolar, schizophrenia. PSHx: Mastectomy L; w/ reconstr. b/l hip replacements - Social History Smoking Status: Never smoked Constitutional: Initial Vital Signs Temperature (C) 36.3 C 03/21/17 01:56 Heart Rate 69 03/21/17 01:56 Respiratory Rate 20 03/21/17 01:56 Blood Pressure 142/85 H 03/21/17 01:56 O2 Sat (%) 95 03/21/17 01:56 O2 Delivery Mode Room Air Allergies/Adverse Reactions: No Known Allergies Allergy (Verified 03/21/17 01:56) Home Medications: Medication Instructions Recorded Clotrimazole 1% [Lotrimin 1%] 30 gm TP Q12 #1 cream 03/17/17 Ketoconazole 2% [Nizoral 2% Cream 60 gm TP BID #1 cream 03/20/17 (*)] Medical Decision Making ED Course/Re-evaluation: Patient is taking a shower and has been assisted including out by nurse Hahn. She has not had any further significant amounts of vaginal bleeding. Is confirmed that is a vaginal source. Bleeding is consistent with her menstrual cycle. She is not lightheaded or syncopal. There is no dysfunctional uterine bleeding findings at this time. Will discharge with follow up with OBGYN for further evaluation. Departure - Departure Disposition: Home, Routine, Self-Care Clinical Impression: Vaginal bleeding Condition: Good Instructions: Dysfunctional Uterine Bleeding (ED) Additional Instructions: Follow up with primary care physician in 2-3 days for both evaluation of your rash and for evaluation of your vaginal bleeding. Return to the emergency depart for increasing bleeding, lightheadedness, fainting, fevers, chills, or any other concerns.
== END 2017-03-21 02:55 | disposition home or self-care (01) ==
DX: N93.9 Abnormal uterine and vaginal bleeding, unspecified (principal)